=== PATIENT | female | born 1945 | race Caucasian/White ===

== ENCOUNTER 2020-07-27 11:21 | Day surgery (SDC) | payer MEDICARE ==
[~2020-07-27 11:21] MED LIST: DIPRIVAN 200 MG/20 ML IV ONE; Ketamine HCl 50 MG/ML ONE
[2020-07-27] MEDS ORDERED: BUPIVACAINE 0.5% VIAL IJ ONE (11:22)
[2020-07-27] MEDS ORDERED: Xylocaine 1% Vial 30 ML PF IJ ONE (11:22)
[2020-07-27] MEDS ORDERED: Depo-Medrol 40 MG/ML IM ONE (11:22)
[2020-07-27] MEDS ORDERED: Lactated Ringers 1,000 ML IV ONE (15:59)
--- NOTE | 2020-07-27 16:25 | XRAY ---
Indication: Left knee genicular nerve block. Intraoperative fluoroscopy was provided for 17 seconds. 2 digital spot images of the left knee submitted for interpretation demonstrates anterior needle tips projecting medial/lateral supracondylar and medial tibial plateau. Correlate with intraoperative findings/report. Incidental total knee arthroplasty.
--- NOTE | 2020-07-27 16:37 | XRAY ---
17 seconds of fluoroscopy was used in surgery for a left genicular nerve block.
== END 2020-07-27 16:25 | disposition home or self-care (01) ==
LOC: SDC-PAIN 11:21
PROVIDERS: ATTEND Psychiatry & Neurology Pain Medicine
DX: M17.12 Unilateral primary osteoarthritis, left knee (principal); M25.562 Pain in left knee; I10 Essential (primary) hypertension; F44.9 Dissociative and conversion disorder, unspecified; G47.30 Sleep apnea, unspecified; K21.9 Gastro-esophageal reflux disease without esophagitis; F41.8 Other specified anxiety disorders; K44.9 Diaphragmatic hernia without obstruction or gangrene; M06.9 Rheumatoid arthritis, unspecified; Z79.899 Other long term (current) drug therapy
CPT/HCPCS: 64454; 73560; 77002; J1030; J2001; J2704

== ENCOUNTER 2020-08-17 09:05 | Day surgery (SDC) | payer MEDICARE ==
[2020-08-17] MEDS ORDERED: Xylocaine 1% Vial 30 ML PF IJ ONE (09:06)
[2020-08-17] MEDS ORDERED: Depo-Medrol 40 MG/ML IM ONE (09:06)
[2020-08-17] MEDS ORDERED: BUPIVACAINE 0.5% VIAL IJ ONE (09:06)
[2020-08-17] MEDS ORDERED: Ketamine HCl 50 MG/ML ONE (10:31)
[2020-08-17] MEDS ORDERED: DIPRIVAN 200 MG/20 ML IV ONE (10:58)
--- NOTE | 2020-08-17 11:37 | XRAY ---
Indication: Left knee genicular nerve ablation. Intraoperative fluoroscopy was provided for 31 seconds. 2 digital spot images of the left knee submitted for interpretation demonstrates anterior needle tips projecting medial/lateral supracondylar and medial tibial plateau. Correlate with intraoperative findings/report. Incidental total knee arthroplasty.
--- NOTE | 2020-08-17 11:37 | XRAY ---
31 seconds fluoroscopy time in surgery for left genicular nerve ablation.
[2020-08-17] MEDS ORDERED: Lactated Ringers 1,000 ML IV ONE (16:46)
== END 2020-08-17 11:12 | disposition home or self-care (01) ==
LOC: SDC-PAIN 09:05
PROVIDERS: ATTEND Psychiatry & Neurology Pain Medicine
DX: M17.12 Unilateral primary osteoarthritis, left knee (principal); Z79.899 Other long term (current) drug therapy; I10 Essential (primary) hypertension; J44.9 Chronic obstructive pulmonary disease, unspecified; K21.9 Gastro-esophageal reflux disease without esophagitis; K44.9 Diaphragmatic hernia without obstruction or gangrene; G47.30 Sleep apnea, unspecified
CPT/HCPCS: 64624; 73560; 77002; J1030; J2001; J2704

== ENCOUNTER 2021-07-26 13:34 | Day surgery (SDC) | payer MEDICARE ==
[2021-07-26] MEDS ORDERED: LIDOCAINE HCL 2% 100 MG/5 ML IJ ONE (13:35)
[2021-07-26] MEDS ORDERED: DIPRIVAN 200 MG/20 ML IV ONE (15:47)
[2021-07-26] MEDS ORDERED: Lactated Ringers 1,000 ML IV ONE (18:08)
--- NOTE | 2021-07-26 21:18 | XRAY ---
Indication: Bilateral L4-S1 MBB. Intraoperative fluoroscopy provided for 8 seconds. Single digital spot image submitted for interpretation demonstrates posterior needle tips projecting over the expected left and right L4-S1 nerve roots. Correlate with intraoperative findings/report.
--- NOTE | 2021-07-27 09:00 | XRAY ---
8 seconds fluoroscopy time in surgery for bilateral L4-S1 MBB.
== END 2021-07-26 16:15 | disposition home or self-care (01) ==
LOC: SDC-PAIN 13:34
PROVIDERS: ATTEND Psychiatry & Neurology Pain Medicine
DX: M47.816 Spondylosis without myelopathy or radiculopathy, lumbar region (principal); Z79.899 Other long term (current) drug therapy
CPT/HCPCS: 64493; 64494; 72020; 77002; J2704

== ENCOUNTER 2022-02-28 09:38 | Day surgery (SDC) | payer MEDICARE ==
[2022-02-28] MEDS ORDERED: Depo-Medrol 40 MG/ML IM ONE (09:39)
[2022-02-28] MEDS ORDERED: Sodium Chloride 0.9(Preservative Free) 10 ML IJ ONE (09:39)
[2022-02-28] MEDS ORDERED: Depo-Medrol 40 MG/ML ONE (10:00)
[2022-02-28] MEDS ORDERED: Lactated Ringers 1,000 ML IV ONE (10:54)
[2022-02-28] MEDS ORDERED: DIPRIVAN 200 MG/20 ML IV ONE (11:02)
--- NOTE | 2022-02-28 16:46 | XRAY ---
38 seconds of fluoroscopy was used in surgery for a caudal VIK.
--- NOTE | 2022-03-01 13:31 | XRAY ---
Indication: Caudal VIK. Intraoperative fluoroscopy provided for 38 seconds. 2 digital spot image submitted for interpretation demonstrates caudal needle tip projecting mid sacrum. Small amount of contrast injected for needle tip placement. Correlate with intraoperative findings/report.
== END 2022-02-28 11:38 | disposition home or self-care (01) ==
LOC: SDC-PAIN 09:38 → EDSTATUS 23:18
PROVIDERS: ATTEND Psychiatry & Neurology Pain Medicine
DX: M54.16 Radiculopathy, lumbar region (principal); Z79.899 Other long term (current) drug therapy
CPT/HCPCS: 62323; 72220; 77003; J1030; J2704; Q9966

== ENCOUNTER 2022-03-21 13:36 | Day surgery (SDC) | payer MEDICARE ==
[2022-03-21] MEDS ORDERED: Depo-Medrol 40 MG/ML IM ONE (13:37)
[2022-03-21] MEDS ORDERED: Marcaine Mpf 0.5% Vial 30 Ml IJ ONE (13:37)
[2022-03-21] MEDS ORDERED: DIPRIVAN 200 MG/20 ML IV ONE (15:01)
[2022-03-21] MEDS ORDERED: Lactated Ringers 1,000 ML IV ONE (15:09)
--- NOTE | 2022-03-21 16:18 | XRAY ---
Indication: Bilateral SI joint injection. Intraoperative fluoroscopy provided for 15 seconds. 4 digital spot image submitted for interpretation demonstrates posterior needle tip projecting over the inferior left and right SI joint. Correlate with intraoperative findings/report.
--- NOTE | 2022-03-21 17:36 | XRAY ---
15 seconds of fluoroscopy was used in surgery for bilateral SI joints injections.
== END 2022-03-21 15:20 | disposition home or self-care (01) ==
LOC: SDC-PAIN 13:36
PROVIDERS: ATTEND Psychiatry & Neurology Pain Medicine
DX: M46.1 Sacroiliitis, not elsewhere classified (principal); Z79.899 Other long term (current) drug therapy
CPT/HCPCS: 27096; 72202; 77002; G0260; 99100; J1030; J2704

== ENCOUNTER 2022-04-04 14:31 | Day surgery (SDC) | payer MEDICARE ==
[2022-04-04] MEDS ORDERED: Depo-Medrol 40 MG/ML IM ONE ×2 (14:32)
[2022-04-04] MEDS ORDERED: Marcaine Mpf 0.5% Vial 30 Ml IJ ONE ×2 (14:32)
[2022-04-04] MEDS ORDERED: Lactated Ringers 1,000 ML IV ONE (15:52)
[2022-04-04] MEDS ORDERED: DIPRIVAN 200 MG/20 ML IV ONE (15:59)
== END 2022-04-04 16:25 | disposition home or self-care (01) ==
LOC: SDC-PAIN 14:31
PROVIDERS: ATTEND Psychiatry & Neurology Pain Medicine
DX: M70.51 Other bursitis of knee, right knee (principal); Z79.899 Other long term (current) drug therapy
CPT/HCPCS: 20610; J1030; J2704

== ENCOUNTER 2023-05-09 11:36 | Day surgery (SDC) | payer MEDICARE ==
[2023-05-09] MEDS ORDERED: Depo-Medrol 40 MG/ML IM ONE (11:37)
[2023-05-09] MEDS ORDERED: LIDOCAINE HCL 1% 50 MG/5 ML VL PF IJ ONE (11:37)
[2023-05-09] MEDS ORDERED: Sodium Chloride 0.9(Preservative Free) 10 ML IJ ONE (11:37)
[2023-05-09] MEDS ORDERED: Decadron 4 MG INJ IV ONE (11:37)
[2023-05-09] MEDS ORDERED: DIPRIVAN 200 MG/20 ML IV ONE (14:06)
--- NOTE | 2023-05-09 15:04 | XRAY ---
Indication: Caudal VIK. Intraoperative fluoroscopy provided for 49 seconds. 3 digital spot images submitted for interpretation demonstrates caudal needle tip projecting mid sacrum. Small amount of contrast injected for needle tip placement. Correlate with intraoperative findings/report. Incidental incompletely visualized lower lumbar fusion hardware.
--- NOTE | 2023-05-09 15:04 | XRAY ---
Indication: Bilateral piriformis injection. Intraoperative fluoroscopy provided for 26 seconds. 3 digital spot images submitted for interpretation demonstrates posterior needle tip projecting over the left and right piriformis. Small amount of contrast injected for needle tip placement. Correlate with intraoperative findings/report.
--- NOTE | 2023-05-09 15:06 | XRAY ---
26 seconds of fluoroscopy was used in surgery for a bilateral piriformis injection.
--- NOTE | 2023-05-09 15:06 | XRAY ---
49 seconds of fluoroscopy was used in surgery for a caudal VIK.
[2023-05-09] MEDS ORDERED: Lactated Ringers 1,000 ML IV ONE (15:36)
== END 2023-05-09 14:41 | disposition home or self-care (01) ==
LOC: SDC-PAIN 11:36
PROVIDERS: ATTEND Psychiatry & Neurology Pain Medicine
DX: M54.16 Radiculopathy, lumbar region (principal); M79.18 Myalgia, other site; Z79.899 Other long term (current) drug therapy
CPT/HCPCS: 20552; 62323; 72170; 72220; 77002; 77003; 99100; J1030; J1100; J2001; J2704; Q9966

== ENCOUNTER 2023-10-30 13:41 | Day surgery (SDC) | payer MEDICARE ==
[2023-10-30] MEDS ORDERED: Sodium Chloride 0.9(Preservative Free) 10 ML IJ ONE (13:42)
[2023-10-30] MEDS ORDERED: Decadron 4 MG INJ IV ONE (13:42)
[2023-10-30] MEDS ORDERED: XYLOCAINE-MPF 1% 5ML SDV IJ ONE (13:42)
[2023-10-30] MEDS ORDERED: DIPRIVAN 200 MG/20 ML IV ONE (16:02)
[2023-10-30] MEDS ORDERED: Lactated Ringers 1,000 ML IV ONE (16:34)
--- NOTE | 2023-10-30 16:53 | XRAY ---
One minute and 2 seconds of fluoroscopy was used in surgery for a left L3-L4 and L5-S1 transforaminal VIK.
--- NOTE | 2023-10-30 16:53 | XRAY ---
11 seconds of fluoroscopy was used in surgery for a left piriformis injection.
--- NOTE | 2023-10-30 16:59 | XRAY ---
Indication: Left L4-S1 transforaminal VIK. Intraoperative fluoroscopy provided for 1 minute 2 seconds. 5 digital spot images submitted for interpretation demonstrates posterior needle tips projecting over the expected left L4 and L5 nerve roots. Small amount of contrast injected for needle tip placement. Correlate with intraoperative findings/report. Incidental bilateral L4-L5 posterior fusion hardware and overlying ventral hernia mesh graft.
--- NOTE | 2023-10-30 16:59 | XRAY ---
Indication: Left piriformis injection. Intraoperative fluoroscopy provided for 11 seconds. Single digital spot image submitted for interpretation demonstrates posterior needle tip projecting over left piriformis. Small amount of contrast injected for needle tip placement. Correlate with intraoperative findings/report.
== END 2023-10-30 16:37 | disposition home or self-care (01) ==
LOC: SDC-PAIN 13:41
PROVIDERS: ATTEND Psychiatry & Neurology Pain Medicine
DX: M54.16 Radiculopathy, lumbar region (principal); M79.18 Myalgia, other site; Z79.899 Other long term (current) drug therapy
CPT/HCPCS: 20552; 62323; 72100; 72170; 77002; 77003; 99100; J1100; J2704; Q9966

== ENCOUNTER 2023-11-27 11:11 | Day surgery (SDC) | payer MEDICARE ==
[2023-11-27] MEDS ORDERED: Depo-Medrol 40 MG/ML IM ONE (11:12)
[2023-11-27] MEDS ORDERED: BUPIVACAINE 0.5% VIAL IJ ONE (11:12)
[2023-11-27] MEDS ORDERED: DIPRIVAN 200 MG/20 ML IV ONE (12:59)
[2023-11-27] MEDS ORDERED: Lactated Ringers 1,000 ML IV ONE (13:56)
--- NOTE | 2023-11-27 14:10 | XRAY ---
Indication: Bilateral SI joint injection. Intraoperative fluoroscopy provided for 14 seconds. 4 digital spot images submitted for interpretation demonstrates posterior needle tips projecting over the left and right SI joint. Correlate with intraoperative findings/report.
--- NOTE | 2023-11-27 14:34 | XRAY ---
14 seconds of fluoroscopy was used in surgery for a bilateral sacroiliac joint injection.
== END 2023-11-27 13:25 | disposition home or self-care (01) ==
LOC: SDC-PAIN 11:11
PROVIDERS: ATTEND Psychiatry & Neurology Pain Medicine
DX: M46.1 Sacroiliitis, not elsewhere classified (principal)
CPT/HCPCS: 27096; 72202; 77002; 99100; J1030; J2704; G0260

== ENCOUNTER 2024-01-01 12:00 | Day surgery (SDC) | payer MEDICARE ==
[2024-01-01] MEDS ORDERED: BUPIVACAINE 0.5% VIAL IJ ONE (12:01)
[2024-01-01] MEDS ORDERED: DIPRIVAN 200 MG/20 ML IV ONE (13:18)
[2024-01-01] MEDS ORDERED: Lactated Ringers 1,000 ML IV ONE (14:19)
--- NOTE | 2024-01-01 14:42 | XRAY ---
Indication: Bilateral L4-S1 MBB. Intraoperative fluoroscopy provided for 12 seconds. Single digital spot images submitted for interpretation demonstrates posterior needle tips projecting over the expected left and right L4-S1 nerve roots. Correlate with intraoperative findings/report. Incidental bilateral L4-L5 posterior fusion hardware.
--- NOTE | 2024-01-01 15:10 | XRAY ---
12 seconds of fluoroscopy was used in surgery for a bilateral L4-S1 MBB.
== END 2024-01-01 13:50 | disposition home or self-care (01) ==
LOC: SDC-PAIN 12:00
PROVIDERS: ATTEND Psychiatry & Neurology Pain Medicine
DX: M47.816 Spondylosis without myelopathy or radiculopathy, lumbar region (principal)
CPT/HCPCS: 64493; 64494; 72020; 77002; J2704

== ENCOUNTER 2024-01-23 14:34 | Day surgery (SDC) | payer MEDICARE ==
[2024-01-23] MEDS ORDERED: LIDOCAINE HCL 1% 50 MG/5 ML VL PF IJ ONE (14:35)
[2024-01-23] MEDS ORDERED: BUPIVACAINE 0.5% VIAL IJ ONE (14:35)
[2024-01-23] MEDS ORDERED: Depo-Medrol 40 MG/ML IM ONE (14:35)
[2024-01-23] MEDS ORDERED: DIPRIVAN 200 MG/20 ML IV ONE (16:23)
[2024-01-23] MEDS ORDERED: Lactated Ringers 1,000 ML IV ONE (17:07)
--- NOTE | 2024-01-23 20:39 | XRAY ---
Indication: Left L4-S1 RFA. Intraoperative fluoroscopy provided for 31 seconds. 5 digital spot image submitted for interpretation demonstrates posterior needle tips projecting over expected left L4-S1 nerve roots. Correlate with intraoperative findings/report. Incidental bilateral L4-L5 fusion hardware
--- NOTE | 2024-01-24 10:12 | XRAY ---
31 seconds of fluoroscopy was used in surgery for a left L4-S1 RFA.
== END 2024-01-23 17:00 | disposition home or self-care (01) ==
LOC: SDC-PAIN 14:34
PROVIDERS: ATTEND Psychiatry & Neurology Pain Medicine
DX: M47.816 Spondylosis without myelopathy or radiculopathy, lumbar region (principal)
CPT/HCPCS: 64635; 64636; 72100; 77002; 99100; J1010; J2001; J2704; J1030

== ENCOUNTER 2024-01-29 13:32 | Day surgery (SDC) | payer MEDICARE ==
[2024-01-29] MEDS ORDERED: BUPIVACAINE 0.5% VIAL IJ ONE (13:33)
[2024-01-29] MEDS ORDERED: LIDOCAINE HCL 1% 50 MG/5 ML VL PF IJ ONE (13:33)
[2024-01-29] MEDS ORDERED: Depo-Medrol 40 MG/ML IM ONE (13:33)
[2024-01-29] MEDS ORDERED: DIPRIVAN 200 MG/20 ML IV ONE (15:38)
--- NOTE | 2024-01-29 16:50 | XRAY ---
Indication: Right L4-S1 RFA Intraoperative fluoroscopy provided for 20 seconds. 3 digital spot images submitted for interpretation demonstrates posterior needle tips projecting over the expected right L4-S1 nerve roots. Correlate with intraoperative findings/report. Incidental bilateral L4-L5 fusion hardware.
[2024-01-29] MEDS ORDERED: Lactated Ringers 1,000 ML IV ONE (17:02)
--- NOTE | 2024-01-29 17:14 | XRAY ---
20 seconds of fluoroscopy was used in surgery for a right L4-S1 RFA.
== END 2024-01-29 16:10 | disposition home or self-care (01) ==
LOC: SDC-PAIN 13:32
PROVIDERS: ATTEND Psychiatry & Neurology Pain Medicine
DX: M47.816 Spondylosis without myelopathy or radiculopathy, lumbar region (principal)
CPT/HCPCS: 64635; 64636; 72100; 77002; 99100; J1010; J2001; J2704